=== PATIENT | female | born 1990 | race Caucasian/White ===

== ENCOUNTER 2022-12-17 10:57 | Outpatient (RCR) | payer BC, SELFPAY ==
--- NOTE | 2022-12-17 12:37 | HP.OTEVAL_ITS ---
Patient's Visit Information GERONIMO YAN is a 32 year old F, referred to Occupational Therapy by Dr. Saira Ramirez DO, with a diagnosis of left hand pain. Date of Evaluation: 12/17/22 Occupational Therapist: Venus Leblanc, SHARI/Rachna, CHT - Subjective This 32 year old female was seen for OT eval with dx of left hand pain. pt states DOI was about 4 weeks ago (while playing with children she jammed her hand into the ground and then hit the back of her hand on a cabinet/shelf. pt states she works for a [employer] and her job is typing all day long. pt states throbbing by the end of her day and burning sensation that limits her from doing ADls and IADL. pt states she would like to know what she can do to decrease pain and return her strength. pt states her family has hx of RA and she does worry at times about her hands. - Pain left hand 3 Pain Intensity Range: 4 - ROM MP: right MF 65* left 85 RF 70*left 85 PIP: right MF 100* RF 95* ROM Comments: pt demo with functional ROM but feels pulling around left MF MCPJ. - Strength Network Control Technician: right 45# left 20# Lateral Pinch: right 24# left 10# Tripod Pinch: right 12# left 8# Strength Comments: pain with left resistive testing around MCPJ region - Sensation Sensation Comments: pt states burning sensation around MCPJ - Quick DASH-Disab of Arm,Shoulder& Hand Quick DASH Score: 15.0000 - Goals Goal:Network Control Technician/Pinch strength at least 75% of unaffected hand: Yes Goal:No pain with affected hand use: Yes Goal:Full use of affected hand in daily activities including: Yes Comment: joint protection Other Goal: Pt will demo understanding of joint protection and ergonomics when performing BADLs and IADLs by d/c. Pt will demo understanding of adaptive Equipment use to decrease stress on joints to allow pt to perform BADSL and IADLS at CHRISTOFER level. - Rehabilitation General Assessment: pt demo with a decrease in left associate account executive strength and MCP ROM limiting pts use of left hand with ADLs and IADLs. Pt would benefit from skilled OT services 1-2x week for 3-4 weeks to decrease pain and increase strength for pt to return to her PLOF. Rehabilitation Potential: Good - Anticipated Interventions A/AAROM/PROM, Strengthening, Modalities, Orthoses, Joint Protection/Energy Conservation, Ergonomic Education, Education re Diagnosis, Home Program - Visit Plan Frequency: 1-2x /Week Duration: 3 Weeks TEXT: Thank you for the opportunity to evaluate your patient. For Medicare and Medicare HMO plans, please review the plan of care and approve it. It will need to be FAXED BACK to us at [phone] for Medicare purposes. Please let me know if there are questions or concerns regarding this plan of c are. Physician Signature: Date:
--- NOTE | 2023-02-26 10:48 | HP.OT.NRP ---
Patient Information Patient Information: GERONIMO YAN was seen in my office for initial evaluation on 12/17/22. The following Plan of Care was established for this patient: POC Established Initial Frequency: 1-2x /Week Initial Duration: 3 Weeks Anticipated Interventions Anticipated Interventions: A/AAROM/PROM, Strengthening, Modalities, Orthoses, Joint Protection/Energy Conservation, Ergonomic Education, Education re Diagnosis and Home Program Last Seen Last Seen: This patient was last seen in our office 12/17/22. Pertinent comments regarding their Occupational therapy will appear below: Pt was seen for OT eval. No further apts were attended. Due to time lapse in services pt is d/c at this time. At this point I will be discontinuing this patient from occupational therapy. I would be happy to see this patient again in the future if found appropriate by the physician. Thank you! Venus Leblanc, OTR/L, CHT
== END 2022-12-17 19:00 | disposition home or self-care (01) ==
LOC: OT 10:57
PROVIDERS: PCP Internal Medicine; Referring Provider Orthopaedic Surgery; Visit Provider Orthopaedic Surgery
DX: M79.642 Pain in left hand (principal)
CPT/HCPCS: 97166